=== PATIENT | male | born 1935 | race Caucasian/White ===

== ENCOUNTER 2022-05-31 04:12 | Day surgery (SDC) | payer OTHER, MEDICARE ==
[2022-05-29 17:55] VITALS: BMI 23.0
[2022-05-31] MEDS ORDERED: CEFAZOLIN SODIUM 2 GM in DEXTROSE 5%-WATER 100 ML IVPB ONE (11:00)
[2022-05-31] MEDS ORDERED: ceFAZolin SODIUM 1 GM VIAL ONE (11:19)
[2022-05-31] MEDS ORDERED: ceFAZolin SODIUM 1 GM VIAL IVPB ONE (12:51)
[2022-05-31] MEDS ORDERED: LIDOCAINE HCL 1%, 10 MG/ML (20ML VIAL) ONE (12:53)
[2022-05-31] MEDS ORDERED: LIDOCAINE HCL 1%, 10 MG/ML (20ML VIAL) INF ONE ×2 (12:54)
[2022-05-31] MEDS ORDERED: VANCOMYCIN 1,000 MG VIAL (RESTRICTED TO ID ONLY) ONE (14:02)
[2022-05-31] MEDS ORDERED: ONDANSETRON 4 MG/2 ML VIAL IVPUSH PRN (14:51)
[2022-05-31] MEDS ORDERED: PROPOFOL 40 ML ONE (15:28)
[2022-05-31 15:42] VITALS: RESP 18
[2022-05-31] MEDS ORDERED: ACETAMINOPHEN 325 MG TABLET (FP) PO PRN (15:50)
[2022-05-31] MEDS ORDERED: MIDAZOLAM HCL 2 MG/2 ML SINGLE DOSE VIAL ONE (15:51)
[2022-05-31] MEDS ORDERED: ACETAMINOPHEN 325 MG TABLET (FP) ONE (17:30)
[2022-05-31 17:45] VITALS: TEMP 97.2
[2022-05-31 18:42] VITALS: BP 130/65; PULSE 80
== END 2022-05-31 18:30 | disposition home or self-care (01) ==
LOC: JASU-SURG 04:12
PROVIDERS: ATTEND Surgery Vascular Surgery
PROC: 05C83ZZ Extirpation of Matter from Left Axillary Vein, Percutaneous Approach (ICD-10-PCS; 2022-05-31)
PROC: 05U Upper Veins, Supplement (ICD-10-PCS; 2022-05-31)
PROC: 057 Upper Veins, Dilation (ICD-10-PCS; 2022-05-31)
PROC: 05WY0JZ Revision of Synthetic Substitute in Upper Vein, Open Approach (ICD-10-PCS; principal; 2022-05-31 12:00)
DX: T82.898A Other specified complication of vascular prosthetic devices, implants and grafts, initial encounter (principal); I82.B22 Chronic embolism and thrombosis of left subclavian vein; N18.6 End stage renal disease; Z99.2 Dependence on renal dialysis; Y84.9 Medical procedure, unspecified as the cause of abnormal reaction of the patient, or of later complication, without mention of misadventure at the time of the procedure
CPT/HCPCS: 76000-TC-FY; 86850; 86900; 86901; 94760

== ENCOUNTER 2023-04-23 10:53 | Day surgery (SDC) | payer OTHER, MEDICARE ==
[2023-04-20 18:15] VITALS: BMI 22.8
[2023-04-23] MEDS ORDERED: POVIDONE-IODINE OINTMENT 10% - 28.4 GM TUBE ONE (12:59)
[2023-04-23] MEDS ORDERED: LIDOCAINE HCL 1%, 10 MG/ML (20ML VIAL) ONE (12:59)
[2023-04-23] MEDS ORDERED: HEPARIN NA (PORCINE) 5,000 UNITS/ML 1ML VIAL ONE ×2 (13:00→14:40)
[2023-04-23] MEDS ORDERED: PROPOFOL 20 ML ONE (13:03)
[2023-04-23] MEDS ORDERED: MIDAZOLAM HCL 2 MG/2 ML SINGLE DOSE VIAL ONE (13:03)
[2023-04-23] MEDS ORDERED: SODIUM CHLORIDE 0.9% P/F 10 ML VIAL IJ ONE (13:04)
[2023-04-23] MEDS ORDERED: ceFAZolin SODIUM 1 GM VIAL ONE (13:04)
[2023-04-23] MEDS ORDERED: LIDOCAINE HCL/PF 2% SDV 5ML VIAL ONE (13:05)
[2023-04-23] MEDS ORDERED: SUCCINYLCHOLINE CHLORIDE 200 MG/10 ML SYRINGE ONE (13:27)
[2023-04-23] MEDS ORDERED: VANCOMYCIN 1,000 MG VIAL (RESTRICTED TO ID ONLY) IVPB ONE (13:40)
[2023-04-23] MEDS ORDERED: HEPARIN NA (PORCINE) 5,000 UNITS/ML 1ML VIAL IVPUSH ONE (13:46)
[2023-04-23] MEDS ORDERED: LIDOCAINE HCL 1%, 10 MG/ML (20ML VIAL) INF ONE ×2 (13:59→15:10)
[2023-04-23] MEDS ORDERED: oxyCODONE HCL 5 MG TABLET PO PRN (15:28)
[2023-04-23] MEDS ORDERED: SODIUM CHLORIDE 1,000 ML IV SCH (15:30)
[2023-04-23 17:46] VITALS: TEMP 97.7
[2023-04-23] MEDS ORDERED: oxyCODONE HCL 5 MG TABLET ONE (18:12)
[2023-04-23 19:19] VITALS: RESP 20
[2023-04-23 19:23] VITALS: BP 135/71; PULSE 75
== END 2023-04-23 19:02 | disposition home or self-care (01) ==
LOC: JASU-SURG 10:53
PROVIDERS: ATTEND Surgery Vascular Surgery
PROC: 05CY0ZZ Extirpation of Matter from Upper Vein, Open Approach (ICD-10-PCS; principal; 2023-04-23 12:30)
DX: I77.0 Arteriovenous fistula, acquired (principal)
CPT/HCPCS: 36415; 76000-TC-FY; 84132; 94760; C1768; J1644